=== PATIENT | female | born 1985 | race Two or more races ===

== ENCOUNTER 2024-11-16 14:40 | Emergency (ER) | payer MEDICAID, SELFPAY ==
[2024-11-16 14:41] VITALS: BMI 34.3
[2024-11-16 14:54] VITALS: BP 146/86; PULSE 85; RESP 18; TEMP 36.6; O2SAT 99
--- NOTE | 2024-11-16 14:58 | XR_ITS ---
Examination: Complete OB ultrasound, less than 14 weeks, transabdominal Date and time of exam: November 16, 2024 1533 hrs. Indications: Pelvic pain and vaginal bleeding today Technique: Obstetrical ultrasound images less than 14 weeks performed via transabdominal imaging Findings: Uterus 11.9 cm, pole 0.37 cm corresponds to 6 week 0 day gestational age No cardiac motion Subchorionic hemorrhage 25 x 27 mm Right ovary 2.87 arterial flow Left ovary 4.3 cm arterial flow 16mm cyst Impression: Intrauterine gestation corresponding to 6 week 0 day gestational age Cardiac motion Recommend short-term follow-up transvaginal pelvic sonography to exclude demise
[2024-11-16 15:33] LABS: Basophils % (Auto) 1 % (0-2.5); Eosinophils # (Auto) 0.2 Thou/mm3 (0.0-0.5); Eosinophils % (Auto) 2 % (0-10); Hematocrit 35.9 % (36.0-46.0); Hemoglobin 11.9 g/dL (12.0-16.0); Immature Granulocytes % (Auto) 0 % (0-0); Immature Granulocytes Auto 0.03 Thou/mm3 (0.00-0.00); Lymphocytes # (Auto) 1.8 Thou/mm3 (1.0-4.8); Lymphocytes % (Auto) 23 % (10-50); Mean Corpuscular HGB Conc 33.1 g/dl (31.0-37.0); Mean Corpuscular Hemoglobin 29.2 pg (25.0-35.0); Mean Corpuscular Volume 88 fL (80-100); Monocytes # (Auto) 0.5 Thou/mm3 (0.0-0.8); Monocytes % (Auto) 7 % (0-12); Neutrophils # (Auto) 5.2 Thou/mm3 (1.8-7.7); Neutrophils % (Auto) 67 % (37-80); Nucleated Red Blood Cell % 0 /100 WBC (0); Platelet Count 322 Thou/mm3 (140-440); RDW Standard Deviation 47.4 fL (36.4-46.3); Red Blood Count 4.08 Miln/mm3 (4.00-5.20); White Blood Count 7.7 Thou/mm3 (3.6-11.0)
[2024-11-16 16:22] LABS: Alanine Aminotransferase < 7 U/L (10-49); Albumin, Serum 3.9 gm/dL (3.5-5.0); Albumin/Globulin Ratio 1.3 (1.2-2.2); Alkaline Phosphatase 89 U/L (46-116); Anion Gap 5 (7-16); Aspartate Amino Transferase 10 U/L (0-34); BUN/Creatinine Ratio 13 Ratio (12-20); Beta HCG,Quantitative 47047 mIU/mL (<5.0); Bilirubin,Total 0.2 mg/dL (0.3-1.2); Blood Urea Nitrogen 8 mg/dL (9-23); Calcium 8.5 mg/dL (8.3-10.6); Calcium (Corrected) 8.6 mg/dL (8.5-10.1); Carbon Dioxide 22.8 mMol/L (20.0-31.0); Chloride 112 mMol/L (98-107); Creatinine (Component) 0.6 mg/dL (0.6-1.3); Estimated Creatinine Clearance 137.3 mL/min (>60); Globulin 2.9 gm/dL (2.3-3.5); Glucose 107 mg/dL (74-106); Osmolality,Calculated 277 (275-295); Potassium 4.1 mMol/L (3.4-5.1); Sodium 140 mMol/L (136-145); Total Protein 6.8 gm/dL (5.7-8.2); eGFR > 60 See Note
[2024-11-16 16:25] LABS: Collection Type, Urine Clean Catch
[2024-11-16 16:42] LABS: Bilirubin,Urine Negative (Negative); Blood,Urine Negative (Negative); Clarity,Urine Clear (Clear/Hazy); Color,Urine Lt-Yellow (Lt Yel-Yel); Glucose, Urine Negative (Negative); Ketones,Urine Negative (Negative); Leukocyte Esterase,Urine Positive (Negative); Nitrite,Urine Negative (Negative); Protein,Urine Negative (Neg - Trace); RBC,Urine 1 /hpf (0-3); Specific Gravity,Urine 1.016 (1.001-1.035); Squamous Epithelial Cell,Urine 1 /hpf (0-5); Urobilinogen,Urine Negative mg/dL (0.0-1.0); WBC,Urine 4 /hpf (0-5)
--- NOTE | 2024-11-16 17:00 | EDNOTE_ITS ---
ED Female Urogenital RME/HPI General Chief complaint: Urogenital-Female Stated complaint: LOWER ABD PAIN AND + PREG Time Seen by Provider: 11/16/24 14:58 Arrival date/time: 11/16/24 14:40 39-year-old female G7, presents to the emergency department complains of vaginal spotting and pelvic pain Limitations: no limitations Related Data Allergies Allergy/AdvReac Type Severity Reaction Status Date / Time Latex, Natural Rubber Allergy Severe Hives Verified 11/16/24 14:44 Review of Systems Review of Systems Systems Reviewed: All systems reviewed, normal except as documented Constitutional Constitutional: Reports system reviewed and no additional complaints, except as documented, Denies fever(s) and Denies headache(s) Eyes Eyes: Reports system reviewed and no additional complaints, except as documented and Denies blurry vision ENT Ears, Nose, Mouth, and Throat: Reports system reviewed and no additional complaints, except as documented, Denies headache(s), Denies nasal congestion and Denies nasal discharge Cardiovascular Cardiovascular: Reports system reviewed and no additional complaints, except as documented, Denies chest pain and Denies dyspnea Respiratory Respiratory: Reports system reviewed and no additional complaints, except as documented, Reports chest congestion, Reports cough and Denies dyspnea Gastrointestinal Gastrointestinal: Reports system reviewed and no additional complaints, except as documented and Denies abdominal pain Integumentary/Breasts Skin/Breast: Reports system reviewed and no additional complaints, except as documented and Denies rash Neurologic Neurologic: Reports system reviewed and no additional complaints, except as documented, Reports as per HPI and Denies headache(s) Past Medical History Social History SMOKING STATUS: Current every day smoker ED Exam General Limitations: Present no limitations General appearance: Present alert and in no apparent distress Head Head exam: Present atraumatic Eye Eye exam: Present normal appearance, PERRL and EOMI ENT ENT exam: Present normal exam, normal oropharynx and mucous membranes moist Neck Neck exam: Present normal inspection, full ROM and trachea midline Chest Chest inspection: Present normal inspection and symmetric chest wall rise Respiratory Respiratory exam: Present normal lung sounds bilaterally Cardiovascular Cardiovascular exam: Present regular rate, normal rhythm and normal heart sounds Abdominal Exam Abdominal exam: Present soft and normal bowel sounds Extremities Exam Extremities exam: Present normal inspection and full ROM Back Exam Back exam: Present normal inspection and full ROM Neurological Exam Neurological exam: Present alert, oriented X3 and CN II-XII intact Psychiatric Psychiatric exam: Present normal affect and normal mood Skin Skin exam: Present warm, dry, intact and normal color Course Quality Measures none Orders Category Date Time Status US OB <= 14 weeks fetus Stat Exams 11/16/24 14:58 Completed ABO/RH Type Stat Lab 11/16/24 15:06 Completed Beta HCG,Quantitative Stat Lab 11/16/24 15:06 Completed CBC Stat Lab 11/16/24 15:06 Completed Chlamydia/GC/TV - PCR Stat Lab 11/16/24 Ordered Comprehensive Metabolic Panel Stat Lab 11/16/24 15:06 Completed UA [Urinalysis] Stat Lab 11/16/24 16:00 Completed Urine Culture Stat Lab 11/16/24 16:00 Received Vital Signs Vital signs: Vital Signs Temperature 97.8 F 11/16/24 14:54 Pulse Rate 85 11/16/24 14:54 Respiratory Rate 18 11/16/24 14:54 Blood Pressure 146/86 H 11/16/24 14:54 Pulse Oximetry (%) 99 11/16/24 14:54 Oxygen Delivery Method Room Air 11/16/24 14:54 O2 saturation 99% r/a wnl Urogenital - Female MDM Narrative MDM Narrative:: 39-year-old female G7, presents to the emergency department complains of vaginal spotting and pelvic pain On exam patient well-appearing patient is not appear ill or toxic no acute distress Patient discharged home in no distress to follow-up with primary care doctor in the next 24 to 48 hours and for any worsening symptoms to return to the ER immediately Patient data External records reviewed:: [facility] previous records Clinical information provided by:: parent Social determinants that could affect healthcare access:: none Patient has the following chronic illnesses:: None How is presenting disease/condition affected by chronic disease/condition?: no chronic disease Evaluation data The following diagnostics were reviewed and interpreted by me:: lab results and radiology exam(s) Lab and/or radiology exams considered but not ordered:: By me Interpretation Summary: Reviewed by me Medications / Prescriptions Medications or Prescriptions considered but not ordered:: No meds Medication administrations:: No meds Consultations Consultation(s) initiated? (list below): No Diagnosis Urogenital Female Differential Diagnosis: urinary tract infection, bacterial vaginosis, ovarian cyst and cystitis Most likely diagnosis given after review of the tests above:: Threatened Admission Indicated Admission indicated?: not indicated Admission Request Was there a request for admission?: No Disposition Plan Disposition Plan: Discharge Discharge Attestation Discharge Attestation: The patient and all family members were given an opportunity to ask questions and understood the discharge instructions. Discharge instructions specifically effects, indications for sooner follow up or return to the emergency department, and the expected course of current diagnosis. Patient condition: Stable Discharge Plan Plan Patient Disposition: HOME (Self Care) Disposition Comment: Stable Prescriptions/Referrals Referrals: Avi Jaeger MD [Primary Care Provider] - In 1 week Problem List Clinical Impression: , threatened Patient/Caregiver Discharge Instructions Education Materials: ED Possible Miscarriage ... Additional Instructions: Please have repeat lab work and ultrasound 3 to 4 days for worsening symptoms return immediately Print Language: Sao Tomean Stand Alone Forms: Kathy Award Info., Patient Portal Info Letter PA/CREDIT CASHIER Supervising Physician NEY/MARIANELA Supervising Physician: Dr Negrete
== END 2024-11-16 17:05 | disposition home or self-care (01) ==
PROVIDERS: Nurse Practitioner Primary Care; Emergency Provider Emergency Medicine; PCP Family Medicine
DX: O20.0 Threatened abortion (principal); Z3A.01 Less than 8 weeks gestation of pregnancy
CPT/HCPCS: 36415; 76801; 80053; 81001; 84702; 85025; 86900; 86901; 87077; 87086; 87186; 87491; 87591; 87661; 99284

== ENCOUNTER 2024-11-24 19:30 | Emergency (ER) | payer SELFPAY ==
[2024-11-24 19:30] VITALS: BMI 41.1
[2024-11-24 19:35] VITALS: BP 145/85; PULSE 77; RESP 18; TEMP 37.2; O2SAT 99
--- NOTE | 2024-11-24 19:48 | XR_ITS ---
Examination: OB Transvaginal ultrasound of the pelvis, complete Technique: Transvaginal sonographic images pelvis performed using ludwig scale imaging Exam date and time: November 24, 2024 2123 hours INDICATIONS: Vaginal bleeding today FINDINGS: Uterus 7.0 cm pole is 0.67 cm corresponding to 6 weeks 4 days gestational age No cardiac motion Right ovary obscured by the body habitus as well as left ovary IMPRESSION: Intrauterine gestation corresponding to 6 weeks 4 days gestational age However, no cardiac motion Recommend short term follow up transvaginal pelvic sonography to exclude demise.
--- NOTE | 2024-11-24 19:49 | EDNOTE_ITS ---
ED OB Contraction Preg RMI/HPI General Chief complaint: Vaginal Bleeding Stated complaint: SPOTTING; 7 WEEKS PREG Time Seen by Provider: 11/24/24 19:34 Source: patient, RN notes reviewed and old records reviewed Arrival date/time: 11/24/24 19:30 Mode of arrival: ambulatory Limitations: no limitations RME / HPI RME / HPI Narrative: 39yof A1 approx 7 weeks gestation presents to the ED for vaginal spotting that initiated today. No fever, nausea/vomiting, pelvic/back pain or dysuria reported. No medications or treatments scow captain. Of note patient was evaluated in ED 11/16 for vaginal bleeding/pelvic pain. Ob ultrasound showed 6 week IUP without cardiac activity. H[place] 74767 at that time. Related Data Allergies Allergy/AdvReac Type Severity Reaction Status Date / Time Latex, Natural Rubber Allergy Severe Hives Verified 11/24/24 19:32 Review of Systems Review of Systems Systems Reviewed: All systems reviewed, normal except as documented Constitutional Constitutional: Denies chills and Denies fever(s) Gastrointestinal Gastrointestinal: Denies nausea and Denies vomiting Genitourinary Genitourinary: Reports abnormal vaginal bleeding, Denies dysuria and Denies pelvic pain Musculoskeletal Musculoskeletal: Denies back pain Past Medical History Past Medical History GASTROINTESTINAL: Positive Obesity Social History SMOKING STATUS: Never smoker SUBSTANCE USE: does not use ALCOHOL: Never ED Exam General Limitations: Present no limitations General appearance: Present alert, in no apparent distress and obese Head Head exam: Present atraumatic and normocephalic Eye Eye exam: Present normal appearance, PERRL and EOMI ENT ENT exam: Present normal exam and mucous membranes moist Neck Neck exam: Present normal inspection and full ROM Chest Chest inspection: Present normal inspection and symmetric chest wall rise Respiratory Respiratory exam: Present normal lung sounds bilaterally; Absent respiratory distress Cardiovascular Cardiovascular exam: Present regular rate and normal rhythm Abdominal Exam Abdominal exam: Present soft; Absent distention, tenderness, guarding or rebound Extremities Exam Extremities exam: Present normal inspection and full ROM Neurological Exam Neurological exam: Present alert and oriented X3 Psychiatric Psychiatric exam: Present normal affect and normal mood Skin Skin exam: Present warm, dry, intact and normal color Course Course Course Narrative: Consult to ob, Dr. Antoine. Recommends follow-up in clinic this week. No meds to be administered in ED. Quality Measures none Orders Category Date Time Status US OB transvaginal Stat Exams 11/24/24 19:48 Completed Beta HCG,Quantitative Stat Lab 11/24/24 20:02 Completed CBC Stat Lab 11/24/24 20:09 Completed Vital Signs Vital signs: Vital Signs Temperature 99.0 F 11/24/24 19:35 Pulse Rate 77 11/24/24 19:35 Respiratory Rate 18 11/24/24 19:35 Blood Pressure 145/85 H 11/24/24 19:35 Pulse Oximetry (%) 99 11/24/24 19:35 Oxygen Delivery Method Room Air 11/24/24 19:35 Vaginal Bleeding MDM Narrative MDM Narrative: 39yof A1 approx 7 weeks gestation presents to the ED for vaginal spotting that initiated today. No fever, nausea/vomiting, pelvic/back pain or dysuria reported. No medications or treatments scow captain. Of note patient was evaluated in ED 11/16 for vaginal bleeding/pelvic pain. Ob ultrasound showed 6 week IUP without cardiac activity. Hcg 95713 at that time. Patient updated on labs and imaging. Encourage close follow-up with OB in the f ollowing week. Motrin/Tylenol prn pain. Strict RTED precautions given. Patient data External records reviewed:: [facility] previous records (11/16/24 ED visit for threatened miscarriage) Clinical information provided by:: patient Social determinants that could affect healthcare access:: other (specify) (poor access to healthcare) Patient has the following chronic illnesses:: obesity How is presenting disease/condition affected by chronic disease/condition?: uneffected by Evaluation data The following diagnostics were reviewed and interpreted by me:: lab results and radiology exam(s) Lab and/or radiology exams considered but not ordered:: UA Interpretation Summary: Ob ultrasound: IUP with NO cardiac activity per [place] read hcg 02903 hgb 12.2 Medications / Prescriptions Medications or Prescriptions considered but not ordered:: no antibiotics recommended at this time Medication administrations:: none Consultations Consultation(s) initiated? (list below): Yes Consultation #1 (Physician, Specialty, Details): Ob, Dr. Antoine. See ED course. Diagnosis Vaginal Bleeding Differential Diagnosis: missed , threatened , incomplete and ectopic without intrauterine Most likely diagnosis given after review of the tests above:: Incomplete Admission Indicated Admission indicated?: not indicated Admission Request Was there a request for admission?: No Disposition Plan Disposition Plan: Discharge Discharge Attestation Discharge Attestation: The patient and all family members were given an opportunity to ask questions and understood the discharge instructions. Discharge instructions specifically effects, indications for sooner follow up or return to the emergency department, and the expected course of current diagnosis. Patient condition: Stable Discharge Plan Plan Patient Disposition: HOME (Self Care) Patient condition on transfer: Stable Prescriptions/Referrals Referrals: No Primary/Family,Physician [Primary Care Provider] - In 1 week Problem List Clinical Impression: Incomplete , Vaginal bleeding Patient/Caregiver Discharge Instructions Education Materials: ED Miscarriage, Incomplete Additional Instructions: Please follow up at the [facility] within the following week. Dr. Antoine will be in the clinic Monday?Monday. Print Language: Wolof Stand Alone Forms: Kathy Award Info., Patient Portal Info Letter NEY/MARIANELA Supervising Physician NEY/MARIANELA Supervising Physician: Ebenezer
[2024-11-24 20:19] LABS: Basophils # (Auto) 0.1 Thou/mm3 (0.0-0.2); Basophils % (Auto) 1 % (0-2.5); Eosinophils # (Auto) 0.1 Thou/mm3 (0.0-0.5); Eosinophils % (Auto) 2 % (0-10); Hematocrit 37.2 % (36.0-46.0); Hemoglobin 12.2 g/dL (12.0-16.0); Immature Granulocytes % (Auto) 0 % (0-0); Immature Granulocytes Auto 0.03 Thou/mm3 (0.00-0.00); Lymphocytes # (Auto) 2.9 Thou/mm3 (1.0-4.8); Lymphocytes % (Auto) 32 % (10-50); Mean Corpuscular HGB Conc 32.8 g/dl (31.0-37.0); Mean Corpuscular Hemoglobin 29.2 pg (25.0-35.0); Mean Corpuscular Volume 89 fL (80-100); Monocytes # (Auto) 0.6 Thou/mm3 (0.0-0.8); Monocytes % (Auto) 6 % (0-12); Neutrophils # (Auto) 5.3 Thou/mm3 (1.8-7.7); Neutrophils % (Auto) 59 % (37-80); Nucleated Red Blood Cell % 0 /100 WBC (0); Platelet Count 355 Thou/mm3 (140-440); RDW Standard Deviation 48.9 fL (36.4-46.3); Red Blood Count 4.18 Miln/mm3 (4.00-5.20); White Blood Count 8.9 Thou/mm3 (3.6-11.0)
[2024-11-24 21:25] LABS: Beta HCG,Quantitative 36268 mIU/mL (<5.0)
[2024-11-24 22:22] VITALS: RESP 18
== END 2024-11-24 22:23 | disposition home or self-care (01) ==
PROVIDERS: Physician Assistant; Emergency Provider Emergency Medicine
DX: O03.4 Incomplete spontaneous abortion without complication (principal)
CPT/HCPCS: 36415; 76817; 84702; 85025; 99284

== ENCOUNTER 2024-11-27 17:09 | Emergency (ER) | payer SELFPAY ==
[2024-11-27 17:17] VITALS: BP 133/84; PULSE 76; RESP 18; TEMP 36.8; O2SAT 97; BMI 41.1
--- NOTE | 2024-11-27 17:21 | XR_ITS ---
Examination: OB Transvaginal ultrasound of the pelvis, complete Technique: Transvaginal sonographic images pelvis performed using ludwig scale imaging Exam date and time: November 27, 2024 1940 hours INDICATIONS: Vaginal bleeding beginning 2 weeks ago, pelvic sonogram November 24, 2024 intrauterine gestation with no cardiac motion FINDINGS: Uterus 11.3 cm, pole 0.4 cm corresponds to 6 weeks 1 day gestational age No cardiac motion Multiple subchorionic hemorrhages, the largest 13 x 11 x 18 mm Ovaries obscured by bowel gas IMPRESSION: Intrauterine gestation corresponding to 6 weeks 1 day gestational age However, again no cardiac motion Continued follow up transvaginal pelvic sonography recommended to confirm embryonic demise.
--- NOTE | 2024-11-27 17:24 | PD.EDVAGBL ---
ED OB Contraction Preg RMI/HPI General Chief complaint: Vaginal Bleeding Stated complaint: VAG BLEEDING Time Seen by Provider: 11/27/24 17:21 Arrival date/time: 11/27/24 17:09 RME / HPI RME / HPI Narrative: 39-year-old female patient 7 para 5 1, about 6 weeks , came in for evaluation regarding vaginal bleeding. Patient has been having vaginal bleeding for almost 2 weeks now, this is her third visit, patient hCG was noted to be trending down for the last 2 visit. Last hCG was noted to be 36,000 last. The rest of the labs unremarkable there is no leukocytosis. No anemia noted. Patient is denying any pelvic pain denies any fever denies any other complaints. No checkup done yet. Related Data Allergies Allergy/AdvReac Type Severity Reaction Status Date / Time Latex, Natural Rubber Allergy Severe Hives Verified 11/24/24 19:32 Review of Systems Review of Systems Narrative Review of Systems: Review of system reviewed and within normal limits except mentioned in HPI ED Exam Narrative Physical exam: VITAL SIGNS: Reviewed. GENERAL APPEARANCE: Alert and interactive, follows commands, no acute distress, HEAD AND FACE: Non-traumatic. ENT: PERRL, pink conjunctivitis, eyelid no trauma, Mucous membrane moist. NECK: Supple, nontender, no nuchal rigidity. CHEST: No tenderness, no crepitus, no paradoxical movement, no retractions. LUNGS: Clear, well ventilated, symmetric, no rales, no wheezing, no ronchi, no stridor, good breath sounds bilaterally. HEART: Regular rate, regular rhythm, no murmur, no gallops. ABDOMEN: Soft, positive bowel sounds, nondistended, no guarding, nontender, no rebound, no masses, RECTAL: Deferred. GENITAL: Deferred. NEUROLOGICAL: Gross motor function intact sensory function intact, Appropriate for age. MUSCULOSKELETAL: low back nontender, full range of motion. EXTREMITIES: Nontender, full range of motion. SKIN: Color pink, dry, no rash, no lacerations, no abrasions, no contusions. LYMPHATICS: Deferred. Course Quality Measures none Orders Category Date Time Status Consult to Gynecology Stat Cons 11/27/24 19:56 Ordered US OB transvaginal Stat Exams 11/27/24 17:21 Completed Beta HCG,Quantitative Stat Lab 11/27/24 18:22 Completed CBC Stat Lab 11/27/24 18:22 Completed CMP [Comprehensive Metabolic Panel] Stat Lab 11/27/24 18:22 Completed Vital Signs Vital signs: Vital Signs Temperature 98.3 F 11/27/24 17:17 Pulse Rate 76 11/27/24 17:17 Respiratory Rate 18 11/27/24 17:17 Blood Pressure 133/84 H 11/27/24 17:17 Pulse Oximetry (%) 97 11/27/24 17:17 Oxygen Delivery Method Room Air 11/27/24 17:17 Vaginal Bleeding MDM Narrative MDM Narrative: 39-year-old female patient 7 para 5 1, about 6 weeks , came in for evaluation regarding vaginal bleeding. Patient has been having vaginal bleeding for almost 2 weeks now, this is her third visit, patient hCG was noted to be trending down for the last 2 visit. Last hCG was noted to be 36,000 last. Patient is denying any pelvic pain denies any fever denies any other complaints. No checkup done yet. Patient's hCG today was noted to be 29,209 T3, 3 days ago it was 36,000+. Ultrasound of the transvaginal showed Intrauterine gestation corresponding to 6 weeks 1 day gestational age However, again no cardiac motion Continued follow up transvaginal pelvic sonography recommended to confirm embryonic demise. I consulted , TRANSLATIONAL SPECIALIST on-call, who recommends /asking the patient to do n.p.o. post midnight, and return to emergency room in in the morning 7:00 for D&C. Plan of care discussed with the patient and the patient told me that they are planning to go to a different clinic tomorrow morning. Patient data External records reviewed:: [facility] previous records and None Clinical information provided by:: patient and family Social determinants that could affect healthcare access:: none Patient has the following chronic illnesses:: None How is presenting disease/condition affected by chronic disease/condition?: no chronic disease Evaluation data The following diagnostics were reviewed and interpreted by me:: lab results and radiology exam(s) Lab and/or radiology exams considered but not ordered:: None Interpretation Summary: See results [facility] Medications / Prescriptions Medications or Prescriptions considered but not ordered:: None Medication administrations:: None Consultations Consultation(s) initiated? (list below): Yes Consultation #1 (Physician, Specialty, Details): Dr Kong, TRANSLATIONAL SPECIALIST on-call, thank you Dr Kong Diagnosis Vaginal Bleeding Differential Diagnosis: missed and incomplete Most likely diagnosis given after review of the tests above:: demise, vaginal spotting Admission Indicated Admission indicated?: not indicated Admission Request Was there a request for admission?: No Disposition Plan Disposition Plan: Discharge Discharge Attestation Discharge Attestation: The patient and all family members were given an opportunity to ask questions and understood the discharge instructions. Discharge instructions specifically effects, indications for sooner follow up or return to the emergency department, and the expected course of current diagnosis. Patient condition: Stable Discharge Plan Plan Patient Disposition: HOME (Self Care) Disposition Comment: Stable Prescriptions/Referrals Referrals: Avi Jaeger MD [Primary Care Provider] - In 1 week Problem List Clinical Impression: Vaginal spotting, demise Patient/Caregiver Discharge Instructions Education Materials: Understanding Uterine Bleeding Additional Instructions: Thank you for the opportunity for serving you today. You are stable for discharged . You are advised to: Please return to emergency room at 7:00 in the morning for D&C per instruction from TRANSLATIONAL SPECIALIST on-call Dr Kong N.p.o. postmidnight Return to ED for worsening of symptoms Print Language: Azerbaijani Stand Alone Forms: Kathy Award Info., Patient Portal Info Letter NEY/MARIANELA Supervising Physician NEY/MARIANELA Supervising Physician: MD Ebenezer
[2024-11-27 18:35] LABS: Basophils % (Auto) 0 % (0-2.5); Eosinophils # (Auto) 0.1 Thou/mm3 (0.0-0.5); Eosinophils % (Auto) 2 % (0-10); Hematocrit 36.6 % (36.0-46.0); Hemoglobin 12.3 g/dL (12.0-16.0); Immature Granulocytes % (Auto) 0 % (0-0); Immature Granulocytes Auto 0.02 Thou/mm3 (0.00-0.00); Lymphocytes # (Auto) 2.3 Thou/mm3 (1.0-4.8); Lymphocytes % (Auto) 30 % (10-50); Mean Corpuscular HGB Conc 33.6 g/dl (31.0-37.0); Mean Corpuscular Hemoglobin 29.5 pg (25.0-35.0); Mean Corpuscular Volume 88 fL (80-100); Monocytes # (Auto) 0.6 Thou/mm3 (0.0-0.8); Monocytes % (Auto) 7 % (0-12); Neutrophils # (Auto) 4.6 Thou/mm3 (1.8-7.7); Neutrophils % (Auto) 60 % (37-80); Nucleated Red Blood Cell % 0 /100 WBC (0); Platelet Count 355 Thou/mm3 (140-440); RDW Standard Deviation 47.5 fL (36.4-46.3); Red Blood Count 4.17 Miln/mm3 (4.00-5.20); White Blood Count 7.6 Thou/mm3 (3.6-11.0)
[2024-11-27 18:57] LABS: Alanine Aminotransferase 10 U/L (10-49); Albumin, Serum 4.5 gm/dL (3.5-5.0); Albumin/Globulin Ratio 1.5 (1.2-2.2); Alkaline Phosphatase 91 U/L (46-116); Anion Gap 6 (7-16); Aspartate Amino Transferase 16 U/L (0-34); BUN/Creatinine Ratio 15 Ratio (12-20); Bilirubin,Total 0.3 mg/dL (0.3-1.2); Blood Urea Nitrogen 12 mg/dL (9-23); Calcium 9.4 mg/dL (8.3-10.6); Calcium (Corrected) 9.4 mg/dL (8.5-10.1); Carbon Dioxide 27.9 mMol/L (20.0-31.0); Chloride 102 mMol/L (98-107); Creatinine (Component) 0.8 mg/dL (0.6-1.3); Estimated Creatinine Clearance 113.8 mL/min (>60); Globulin 3.1 gm/dL (2.3-3.5); Glucose 90 mg/dL (74-106); Osmolality,Calculated 271 (275-295); Potassium 4.2 mMol/L (3.4-5.1); Sodium 136 mMol/L (136-145); Total Protein 7.6 gm/dL (5.7-8.2); eGFR > 60 See Note
[2024-11-27 19:38] LABS: Beta HCG,Quantitative 29293 mIU/mL (<5.0)
[2024-11-27 19:49] VITALS: BP 152/93; PULSE 67; RESP 18; TEMP 36.7; O2SAT 100
--- NOTE | 2024-11-27 20:44 | PD.GYNCONS ---
WOOD FLOORING SPECIALIST HPI Data of Consult Consult date: 11/27/24 Requesting Physician: Jonas BREWSTER Primary Care Provider: Avi Jaeger MD Consult Narrative Reason for consult: vaginal bleeding History of present illness: Patient is a 39-year-old female with a missed AB. It is her third trip to the ER. She has a 6-week IUP with no cardiac activity. She was also here 11/16 and 11/24. She has been trying to get care at [facility] and they are not accepting new OB patients. There has been no growth of the and there is no cardiac activity. The patient reports reports cramping and spotting but no heavy bleeding. She would like a D&C. The patient ate approximately 5 hours prior to admission. I ran the case by anesthesia and they would prefer to do it tomorrow. As patient is medically stable they recommended sending her back through the ER in the morning as an add-on case and the patient is amendable to this. If she starts bleeding heavily overnight she can come back to the ER and I will perform the D&C tonight. Review of Systems Review of Systems Narrative Review of Systems: Mild cramping and some light bleeding. Meds Home Medications and Allergies Allergies Allergy/AdvReac Type Severity Reaction Status Date / Time Latex, Natural Rubber Allergy Severe Hives Verified 11/24/24 19:32 Exam - WOOD FLOORING SPECIALIST Vital Signs Temp Pulse Resp BP Pulse Ox O2 Del Method 98.1 F 67 18 152/93 H 100 Room Air 11/27/24 19:49 11/27/24 19:49 11/27/24 19:49 11/27/24 19:49 11/27/24 19:49 11/27/24 19:49 Narrative Exam Ultrasound report and labs reviewed. Vitals reviewed. Patient not seen by myself. WOOD FLOORING SPECIALIST - Results Labs 11/27/24 18:22 11/27/24 18:22 Labs: Short CBC 11/27/24 Range/Units 18:22 WBC 7.6 (3.6-11.0) Thou/mm3 Hgb 12.3 (12.0-16.0) g/dL Hct 36.6 (36.0-46.0) % Plt Count 355 (140-440) Thou/mm3 BMP 11/27/24 18:22 Sodium 136 Potassium 4.2 Chloride 102 Carbon Dioxide 27.9 BUN 12 Creatinine 0.8 Glucose 90 Calcium 9.4 Liver Function 11/27/24 Range/Units 18:22 Total Bilirubin 0.3 (0.3-1.2) mg/dL AST 16 (0-34) U/L ALT 10 (10-49) U/L Alkaline Phosphatase 91 (46-116) U/L Albumin 4.5 (3.5-5.0) gm/dL Assessment and Plan Assessment and plan (1) Vaginal bleeding: Status: Acute Assessment and plan: 6-week missed AB with some cramping and bleeding. Patient desires suction dilation and curettage. This cannot be performed tonight until 8 hours n.p.o. Which would involve calling in a team at midnight. Anesthesia suggested the patient come back in the morning and be added on to the OR schedule. The maid housekeeper thought going through the ER first thing in the morning would expedite this process. The patient is to go home tonight and be n.p.o. for 8 hours. She is to return to the ER tomorrow at 7 in the morning. She will need an IV and a surgical consent. The physician performing her surgery will consent her for a suction D&C. I will sign out the case to the CONTRACT ASSISTANT laborist on-call tomorrow. Blood type is B positive. Current hemoglobin 12.3 (2) Incomplete : Status: Acute Assessment and plan: For suction dilation and curettage in the morning.
[2024-11-27 21:05] VITALS: BP 135/76; PULSE 86; RESP 16; TEMP 37; O2SAT 98
== END 2024-11-27 21:07 | disposition home or self-care (01) ==
PROVIDERS: Nurse Practitioner Primary Care; Emergency Provider Emergency Medicine; PCP Family Medicine
DX: O02.1 Missed abortion (principal)
CPT/HCPCS: 36415; 76817; 80053; 84702; 85025; 99284

== ENCOUNTER 2025-06-21 11:47 | Emergency (ER) | payer MEDICAID, SELFPAY ==
[2025-06-21 12:01] VITALS: BP 158/101; PULSE 73; RESP 19; TEMP 36.4; O2SAT 99; BMI 29.7
--- NOTE | 2025-06-21 12:09 | EDNOTE_ITS ---
Nausea/Vomit./Diarrhea-RME/HPI General Chief complaint: Nausea/Vomiting/Diarrhea Stated complaint: Vomiting and diarrhea today Time Seen by Provider: 06/21/25 12:09 Arrival date/time: 06/21/25 11:47 39-year-old female who is currently homeless with history of methamphetamine abuse presents with concerns for nausea vomiting and diarrhea which began today patient reports no chest pain or shortness of breath Limitations: no limitations Related Data Previous Rx's ?Medication ?Instructions ?Recorded acetaminophen 325 mg capsule 650 mg (2 x 325 mg) PO Q8 HR PRN 06/21/25 pain #30 caps ondansetron 4 mg disintegrating 4 mg PO Q8H PRN nausea and 06/21/25 tablet vomiting #10 tabs Allergies Allergy/AdvReac Type Severity Reaction Status Date / Time Latex, Natural Rubber Allergy Severe Hives Verified 06/21/25 11:51 Review of Systems Review of Systems Systems Reviewed: All systems reviewed, normal except as documented Constitutional Constitutional: Reports system reviewed and no additional complaints, except as documented, Denies fever(s) and Denies headache(s) Eyes Eyes: Reports system reviewed and no additional complaints, except as documented and Denies blurry vision ENT Ears, Nose, Mouth, and Throat: Reports system reviewed and no additional complaints, except as documented, Denies headache(s), Denies nasal congestion and Denies nasal discharge Cardiovascular Cardiovascular: Reports system reviewed and no additional complaints, except as documented, Denies chest pain and Denies dyspnea Respiratory Respiratory: Reports system reviewed and no additional complaints, except as documented, Denies chest congestion, Denies cough and Denies dyspnea Gastrointestinal Gastrointestinal: Reports system reviewed and no additional complaints, except as documented, Denies abdominal pain, Reports diarrhea, Reports nausea and Reports vomiting Integumentary/Breasts Skin/Breast: Reports system reviewed and no additional complaints, except as documented and Denies rash Neurologic Neurologic: Reports system reviewed and no additional complaints, except as documented, Reports as per HPI and Denies headache(s) Past Medical History Past Medical History CARDIAC: Negative Congestive Heart Failure RESPIRATORY: Negative Chronic Obstructive Pulmonary Disease (COPD) GASTROINTESTINAL: Positive Obesity GENITOURINARY: Negative Renal Disease ENDOCRINE: Negative Diabetes Mellitus Type 1 or Diabetes Mellitus Type 2 Social History SMOKING STATUS: Never smoker SUBSTANCE USE: does not use ED Exam General Limitations: Present no limitations General appearance: Present alert and in no apparent distress Head Head exam: Present atraumatic Eye Eye exam: Present normal appearance, PERRL and EOMI ENT ENT exam: Present normal exam, normal oropharynx and mucous membranes moist Neck Neck exam: Present normal inspection, full ROM and trachea midline Chest Chest inspection: Present normal inspection and symmetric chest wall rise Respiratory Respiratory exam: Present normal lung sounds bilaterally Cardiovascular Cardiovascular exam: Present regular rate, normal rhythm and normal heart sounds Abdominal Exam Abdominal exam: Present soft and normal bowel sounds; Absent distention, tenderness, guarding, rebound, rigidity, Nicole's sign, Rovsing's sign or tenderness at McBurney's Point Abdominal tenderness: Absent RUQ or RLQ Extremities Exam Extremities exam: Present normal inspection and full ROM Back Exam Back exam: Present normal inspection and full ROM Neurological Exam Neurological exam: Present alert, oriented X3 and CN II-XII intact Psychiatric Psychiatric exam: Present normal affect and normal mood Skin Skin exam: Present warm, dry, intact and normal color Course Quality Measures none Orders Category Date Time Status US OB transvaginal Stat Exams 06/21/25 14:09 Completed Beta HCG,Quantitative Stat Lab 06/21/25 12:28 Completed CBC Stat Lab 06/21/25 12:21 Completed Comprehensive Metabolic Panel Stat Lab 06/21/25 12:21 Completed Drug Screen,Urine Stat Lab 06/21/25 12:41 Completed HCG,Qualitative Serum Stat Lab 06/21/25 12:21 Completed Lipase Stat Lab 06/21/25 12:21 Completed Troponin I Stat Lab 06/21/25 12:21 Completed UA, C/S IF [Urinalysis, C/S if Indicated] Stat Lab 06/21/25 12:41 Completed Vital Signs Vital signs: Vital Signs Temperature 97.5 F 06/21/25 12:01 Pulse Rate 73 06/21/25 12:01 Respiratory Rate 19 06/21/25 12:01 Blood Pressure 158/101 H 06/21/25 12:01 Pulse Oximetry (%) 99 06/21/25 12:01 Oxygen Delivery Method Room Air 06/21/25 12:01 O2 saturation 9 9% room air within normal limits Nausea/Vomiting/Diarrhea MDM Narrative MDM Narrative:: 39-year-old female who is currently homeless with history of methamphetamine abuse presents with concerns for nausea vomiting and diarrhea which began today patient reports no chest pain or shortness of breath On exam patient well-appearing does not appear look toxic no acute distress Lab work obtained hCG urine is positive hCG quantitative blood level checked patient is her lab work Ultrasound obtained does not show any evidence of I suspect this is secondary to the patient is early she does not yet seen an ultrasound Explained to the patient she must follow-up with [facility] as soon as possible for emergent concerns to return immediately Patient reports no bleeding and this is a incidental finding Symptoms highly consistent with viral gastroenteritis Patient discharged home in no distress to follow-up with primary care doctor in the next 24 to 48 hours and for any worsening symptoms to return to the ER immediately Patient data External records reviewed:: [facility] previous records Clinical information provided by:: patient Social determinants that could affect healthcare access:: substance use Patient has the following chronic illnesses:: Substance abuse How is presenting disease/condition affected by chronic disease/condition?: exacerbated by Evaluation data The following diagnostics were reviewed and interpreted by me:: lab results and radiology exam(s) Lab and/or radiology exams considered but not ordered:: Labs and radiology obtained Interpretation Summary: Reviewed by me Medications / Prescriptions Medications / Prescriptions considered but not ordered:: Given Medication administrations:: Given Consultations Consultation(s) initiated? (list below): No Diagnosis Nausea Differential Diagnosis: traveler's diarrhea, food poisoning and gastroenteritis Most likely diagnosis given after review of the tests above:: Gastroenteritis, incidental finding of Admission Indicated Admission indicated?: not indicated Admission Request Was there a request for admission?: No Disposition Plan Disposition Plan: Discharge Discharge Attestation Discharge Attestation: The patient and all family members were given an opportunity to ask questions and understood the discharge instructions. Discharge instructions specifically effects, indications for sooner follow up or return to the emergency department, and the expected course of current diagnosis. Patient condition: Stable Discharge Plan Plan Patient Disposition: HOME (Self Care) Discharge Disposition comment: Stable Prescriptions/Referrals Prescriptions/Med Rec: New ondansetron 4 mg tablet,disintegrating 4 mg PO Q8H PRN (Reason: nausea and vomiting) Qty: 10 0RF acetaminophen 325 mg capsule 650 mg PO Q8HR PRN (Reason: pain) Qty: 30 0RF Referrals: No Primary/Family,Physician [Primary Care Provider] - In 1 week Problem List Clinical Impression: Gastroenteritis, state, incidental, Methamphetamine abuse Patient/Caregiver Discharge Instructions Education Materials: ED Drug Abuse Additional Instructions: Please follow-up with [facility] as soon as possible for worsening symptoms or concerns return immediately Today your hCG quantitative level is 640 Ultrasound does not show evidence of at this time which means most likely you have an early You may need to have repeat imaging and lab work with [facility] Please refrain from drug abuse that can kill you and can injure your unborn fetus Print Language: Swedish Stand Alone Forms: Kathy Award Info., Patient Portal Info Letter PA/BANKRUPTCY LEGAL ASSISTANT Supervising Physician PA/BANKRUPTCY LEGAL ASSISTANT Supervising Physician: Dr. garcia
[2025-06-21 12:48] LABS: Collection Type, Urine Clean Catch
[2025-06-21 12:55] LABS: Basophils # (Auto) 0.0 Thou/mm3 (0.0-0.2); Basophils % (Auto) 0 % (0-2.5); Eosinophils # (Auto) 0.1 Thou/mm3 (0.0-0.5); Eosinophils % (Auto) 1 % (0-10); Hematocrit 36.5 % (36.0-46.0); Hemoglobin 11.3 g/dL (12.0-16.0); Immature Granulocytes Auto 0.03 Thou/mm3 (0.00-0.00); Lymphocytes # (Auto) 0.6 Thou/mm3 (1.0-4.8); Lymphocytes % (Auto) 5 % (10-50); Mean Corpuscular HGB Conc 31.0 g/dl (31.0-37.0); Mean Corpuscular Hemoglobin 24.5 pg (25.0-35.0); Mean Corpuscular Volume 79 fL (80-100); Monocytes # (Auto) 0.5 Thou/mm3 (0.0-0.8); Monocytes % (Auto) 5 % (0-12); Neutrophils # (Auto) 9.8 Thou/mm3 (1.8-7.7); Neutrophils % (Auto) 89 % (37-80); Nucleated Red Blood Cell # 0.00 Thou/mm3 (0.00-0.00); Nucleated Red Blood Cell % 0 /100 WBC (0); Platelet Count 297 Thou/mm3 (140-440); RDW Standard Deviation 52.0 fL (36.4-46.3); Red Blood Count 4.62 Miln/mm3 (4.00-5.20); White Blood Count 10.9 Thou/mm3 (3.6-11.0)
[2025-06-21 13:13] LABS: Alanine Aminotransferase 12 U/L (10-49); Albumin, Serum 4.7 gm/dL (3.5-5.0); Albumin/Globulin Ratio 1.4 (1.2-2.2); Alkaline Phosphatase 97 U/L (46-116); Anion Gap 8 (7-16); Aspartate Amino Transferase 19 U/L (0-34); BUN/Creatinine Ratio 14 Ratio (12-20); Bilirubin,Total 0.4 mg/dL (0.3-1.2); Blood Urea Nitrogen 10 mg/dL (9-23); Calcium 9.0 mg/dL (8.3-10.6); Calcium (Corrected) 9.0 mg/dL (8.5-10.1); Carbon Dioxide 22.9 mMol/L (20.0-31.0); Chloride 106 mMol/L (98-107); Creatinine (Component) 0.7 mg/dL (0.6-1.3); Estimated Creatinine Clearance 117.5 mL/min (>60); Globulin 3.3 gm/dL (2.3-3.5); Glucose 112 mg/dL (74-106); Lipase 44 U/L (12-53); Osmolality,Calculated 273 (275-295); Potassium 4.4 mMol/L (3.4-5.1); Sodium 137 mMol/L (136-145); Total Protein 8.0 gm/dL (5.7-8.2); Troponin I < 0.002 ng/mL (0.0-0.045); eGFR > 60 See Note
[2025-06-21 13:16] LABS: Bilirubin,Urine Negative (Negative); Blood,Urine Negative (Negative); Clarity,Urine Clear (Clear/Hazy); Color,Urine Yellow (Lt Yel-Yel); Culture Indicated,Urine Not Indicated; Glucose, Urine Negative (Negative); Ketones,Urine Negative (Negative); Leukocyte Esterase,Urine Negative (Negative); Nitrite,Urine Negative (Negative); PH,Urine 5.5 (5.0-7.0); Protein,Urine Negative (Neg - Trace); RBC,Urine 4 /hpf (0-3); Specific Gravity,Urine 1.031 (1.001-1.035); Squamous Epithelial Cell,Urine 2 /hpf (0-5); Urobilinogen,Urine Negative mg/dL (0.0-1.0); WBC,Urine 1 /hpf (0-5)
[2025-06-21 13:45] LABS: HCG,Qualitative Serum Positive
[2025-06-21 13:48] LABS: Amphetamine/Methamp Scrn,U Positive (Negative); Barbiturate Screen,Urine Negative (Negative); Benzodiazepines Screen,Urine Negative (Negative); Benzoylecgonine Screen, Ur Negative (Negative); Fentanyl Screen,Urine Negative (Negative); Opiate Screen,Urine Negative (Negative); THC Screen,Urine Positive (Negative)
--- NOTE | 2025-06-21 14:09 | XR_ITS ---
Examination: OB Transvaginal ultrasound of the pelvis, complete Technique: Transvaginal sonographic images pelvis performed using ludwig scale imaging Exam date and time: June 21, 2025, 1505 hours INDICATIONS: Positive test with vomiting today FINDINGS: Uterus 9.8 cm, no intrauterine gestation Urinary fibroid degeneration 2.7 cm Endometrial stripe 1.6 cm Right ovary not visualized Left ovary 3.9 cm arterial flow 14 mm follicular cyst IMPRESSION: Negative for intrauterine gestation Uterine area fibroid degeneration 27 x 15 x 25 mm.
[2025-06-21 15:27] LABS: Beta HCG,Quantitative 640 mIU/mL (<5.0)
[2025-06-21 16:57] VITALS: BP 168/78; PULSE 79; RESP 18; TEMP 36.5; O2SAT 98
== END 2025-06-21 16:59 | disposition home or self-care (01) ==
PROVIDERS: Nurse Practitioner Primary Care; Emergency Provider Emergency Medicine
DX: O21.8 Other vomiting complicating pregnancy (principal); K52.9 Noninfective gastroenteritis and colitis, unspecified; Z59.00 Homelessness unspecified; F15.10 Other stimulant abuse, uncomplicated
CPT/HCPCS: 36415; 76817; 80053; 80307; 81001; 83690; 84484; 84702; 84703; 85025; 99283

== ENCOUNTER 2025-06-27 14:47 | Emergency (ER) | payer MEDICAID, SELFPAY ==
[2025-06-27 14:50] VITALS: BP 156/88; PULSE 87; RESP 18; TEMP 36.9; O2SAT 99
--- NOTE | 2025-06-27 15:01 | XR_ITS ---
Examination: Complete OB ultrasound, less than 14 weeks, transabdominal Date and time of exam: June 27, 2025, 1612 hours INDICATIONS: Back pain pelvic pain 1 week Technique: Obstetrical ultrasound images less than 14 weeks performed via transabdominal imaging Findings: Uterus 10.0 cm endometrial stripe 2.1 cm No uterine mass or intrauterine gestation Right ovary obscured by bowel gas Left ovary 4.2 cm arterial flow 2.6 x 1.4 x 2.1 cm cyst IMPRESSION: Left ovarian simple cyst 2.6 x 1.4 x 2.1 cm .
--- NOTE | 2025-06-27 15:09 | PD.EDPREG ---
ED OB Contraction Preg RMI/HPI General Stated complaint: CORRECTION CLEARANCE Time Seen by Provider: 06/27/25 14:51 Source: patient Arrival date/time: 06/27/25 14:47 39-year-old female with no known medical history presents to the emergency room with a chief complaint of needing retirement clearance due to being and not knowing how far along she is. Mode of arrival: ambulatory Limitations: no limitations Related Data Previous Rx's ?Medication ?Instructions ?Recorded acetaminophen 325 mg capsule 650 mg (2 x 325 mg) PO Q8HR PRN 06/21/25 pain #30 caps ondansetron 4 mg disintegrating 4 mg PO Q8H PRN nausea and 06/21/25 tablet vomiting #10 tabs Allergies Allergy/AdvReac Type Severity Reaction Status Date / Time Latex, Natural Rubber Allergy Severe Hives Verified 06/21/25 11:51 Review of Systems Review of Systems Systems Reviewed: All systems reviewed, normal except as documented Constitutional Constitutional: Reports system reviewed and no additional complaints, except as documented, Denies fatigue, Denies fever(s), Denies headache(s) and Denies weakness Eyes Eyes: Reports system reviewed and no additional complaints, except as documented, Denies blurry vision and Denies change in vision ENT Ears, Nose, Mouth, and Throat: Reports system reviewed and no additional complaints, except as documented, Denies otalgia, Denies headache(s), Denies nasal congestion, Denies throat swelling and Denies vertigo Cardiovascular Cardiovascular: Reports system reviewed and no additional complaints, except as documented, Denies chest pain, Denies dyspnea and Denies dyspnea on exertion Respiratory Respiratory: Reports system reviewed and no additional complaints, except as documented, Denies chest congestion, Denies cough, Denies dyspnea, Denies dyspnea on exertion and Denies wheezing Gastrointestinal Gastrointestinal: Reports system reviewed and no additional complaints, except as documented, Denies abdominal pain, Denies cramping, Denies nausea and Denies vomiting Genitourinary Genitourinary: Reports system reviewed and no additional complaints, except as documented Musculoskeletal Musculoskeletal: Reports system reviewed and no additional complaints, except as documented and Denies back pain Integumentary/Breasts Skin/Breast: Reports system reviewed and no additional complaints, except as documented and Denies wounds Neurologic Neurologic: Reports system reviewed and no additional complaints, except as documented, Denies confusion, Denies headache(s), Denies lack of coordination, Denies vertigo and Denies weakness Psychiatric Psychiatric: Reports system reviewed and no additional complaints, except as documented, Denies anxiety, Denies confusion, Denies depression, Denies paranoia, Denies suicidal ideation and Denies tactile hallucinations Endocrine Endocrine: Reports system reviewed and no additional complaints, except as documented and Denies fatigue Hematologic/Lymphatic Hematologic/Lymphatic: Reports system reviewed and no additional complaints, except as documented and Denies lymphadenopathy Allergic/Immunologic Allergic/Immunologic: Reports system reviewed and no additional complaints, except as documented, Denies throat swelling, Denies urticaria and Denies wheezing Past Medical History Past Medical History CARDIAC: Negative Congestive Heart Failure RESPIRATORY: Negative Chronic Obstructive Pulmonary Disease (COPD) GASTROINTESTINAL: Positive Obesity GENITOURINARY: Negative Renal Disease ENDOCRINE: Negative Diabetes Mellitus Type 1 or Diabetes Mellitus Type 2 Social History SMOKING STATUS: Never smoker SUBSTANCE USE: does not use ED Exam General Limitations: Present no limitations General appearance: Present alert and in no apparent distress Head Head exam: Present atraumatic Eye Eye exam: Present normal appearance, PERRL and EOMI ENT ENT exam: Present normal exam, normal oropharynx and mucous membranes moist Neck Neck exam: Present normal inspection, full ROM and trachea midline Chest Chest inspection: Present normal inspection and symmetric chest wall rise Respiratory Respiratory exam: Present normal lung sounds bilaterally Cardiovascular Cardiovascular exam: Present regular rate, normal rhythm and normal heart sounds Abdominal Exam Abdominal exam: Present soft and normal bowel sounds; Absent distention, tenderness, guarding, rebound or rigidity Extremities Exam Extremities exam: Present normal inspection and full ROM Back Exam Back exam: Present normal inspection and full ROM Neurological Exam Neurological exam: Present alert, oriented X3 and CN II-XII intact Psychiatric Psychiatric exam: Present normal affect and normal mood Skin Skin exam: Present warm, dry, intact and normal color Course Quality Measures none Orders Category Date Time Status US OB <= 14 weeks fetus Stat Exams 06/27/25 15:01 Completed ABO/RH Type Stat Lab 06/27/25 15:35 Completed Beta HCG,Quantitative Stat Lab 06/27/25 15:35 Completed CBC Stat Lab 06/27/25 15:35 Completed CMP [Comprehensive Metabolic Panel] Stat Lab 06/27/25 15:35 Completed UA [Urinalysis] Stat Lab 06/27/25 15:01 Ordered Potassium Chloride [K-Dur] Med 06/27/25 17:16 Discontinued 40 meq PO X1 ONE Vital Signs Vital signs: Vital Signs Temperature 98.5 F 06/27/25 14:50 Pulse Rate 87 06/27/25 14:50 Respiratory Rate 18 06/27/25 14:50 Blood Pressure 156/88 H 06/27/25 14:50 Pulse Oximetry (%) 99 06/27/25 14:50 Oxygen Delivery Method Room Air 06/27/25 14:50 OB/Uterine Contractions MDM Narrative MDM Narrative:: 39-year-old female with no known medical history presents to the emergency room with a chief complaint of needing retirement clearance due to being and not knowing how far along she is. Patient is hemodynamically stable and in no apparent distress. Patient is brought in for retirement clearance. The retirement sent her to the emergency room due to a positive test. They sent her to confirm viability and heart tones. An ultrasound was completed but at this time no intrauterine gestation was visualized and there is no heart tones. The patient's hCG levels were 3810. Patient denies any vaginal bleeding or any pelvic pain. Patient was educated that she will need repeat ultrasound and blood work as she may be early on in her . Patient is unable to tell me her last menstrual period. Patient was discharged and cleared to go to retirement Patient was discharged and educated to follow-up with primary care provider in the next 24 to 48 hours and return to the emergency room for any evidence of worsening signs or symptoms Patient data External records reviewed:: [facility] previous records Clinical information provided by:: patient Social determinants that could affect healthcare access:: none Patient has the following chronic illnesses:: No chronic How is presenting disease/condition affected by chronic disease/condition?: no chronic disease Evaluation data The following diagnostics were reviewed and interpreted by me:: lab results and radiology exam(s) Lab and/or radiology exams considered but not ordered:: Labs radiology exams considered and ordered Interpretation Summary: Ultrasound OB-Findings: Uterus 10.0 cm endometrial stripe 2.1 cm No uterine mass or intrauterine gestation Right ovary obscured by bowel gas Left ovary 4.2 cm arterial flow 2.6 x 1.4 x 2.1 cm cyst IMPRESSION: Left ovarian simple cyst 2.6 x 1.4 x 2.1 cm Medications / Prescriptions Medications or Prescriptions considered but not ordered:: No medication given Medication administrations:: Medication Administration History Discontinued Medications Potassium Chloride (Potassium Chloride 20 Meq Tabcr) 40 meq PO X1 ONE Stop: 06/27/25 17:17 Last Admin: 06/27/25 17:20 Dose: Not Given Documented By: Non-Admin Reason: Patient Refused Comments: No medication given Consultations Consultation(s) initiated? (list below): No Diagnosis OB Contractions Differential Diagnosis: other (Pelvic cramping) Most likely diagnosis given after review of the tests above:: Pelvic cramping Admission Indicated Admission indicated?: not indicated Explain why admission is indicated or not indicated:: N/A Admission Request Was there a request for admission?: No Disposition Plan Disposition Plan: Discharge Discharge Attestation Discharge Attestation: The patient and all family members were given an opportunity to ask questions and understood the discharge instructions. Discharge instructions specifically effects, indications for sooner follow up or return to the emergency department, and the expected course of current diagnosis. Patient condition: Stable Discharge Plan Plan Patient Disposition: HOME (Self Care) Discharge Disposition comment: Stable Prescriptions/Referrals Prescriptions/Med Rec: No Action ondansetron 4 mg tablet,disintegrating 4 mg PO Q8H PRN (Reason: nausea and vomiting) Qty: 10 0RF acetaminophen 325 mg capsule 650 mg PO Q8HR PRN (Reason: pain) Qty: 30 0RF Referrals: No Primary/Family,Physician [Primary Care Provider] - In 1 week Problem List Clinical Impression: , Pelvic cramping Patient/Caregiver Discharge Instructions Education Materials: First Trimester Additional Instructions: Please follow-up with your [facility] in the next 24 to 48 hours Please avoid using methamphetamine Your ultrasound at this time cannot see any heart tones or any intrauterine gestation. This may be because you are early in your . Our radiologist recommends repeat ultrasound and blood work in 1 week For any evidence of worsening signs or symptoms return to the emergency room immediately Print Language: Armenian Stand Alone Forms: Kathy Award Info., Work/School Release, Patient Portal Info Letter
[2025-06-27 16:29] LABS: Basophils # (Auto) 0.0 Thou/mm3 (0.0-0.2); Basophils % (Auto) 0 % (0-2.5); Eosinophils # (Auto) 0.1 Thou/mm3 (0.0-0.5); Eosinophils % (Auto) 1 % (0-10); Hematocrit 33.4 % (36.0-46.0); Hemoglobin 10.4 g/dL (12.0-16.0); Immature Granulocytes Auto 0.02 Thou/mm3 (0.00-0.00); Lymphocytes # (Auto) 1.8 Thou/mm3 (1.0-4.8); Lymphocytes % (Auto) 30 % (10-50); Mean Corpuscular HGB Conc 31.1 g/dl (31.0-37.0); Mean Corpuscular Hemoglobin 24.7 pg (25.0-35.0); Mean Corpuscular Volume 79 fL (80-100); Monocytes # (Auto) 0.4 Thou/mm3 (0.0-0.8); Monocytes % (Auto) 6 % (0-12); Neutrophils # (Auto) 3.7 Thou/mm3 (1.8-7.7); Neutrophils % (Auto) 62 % (37-80); Nucleated Red Blood Cell # 0.00 Thou/mm3 (0.00-0.00); Nucleated Red Blood Cell % 0 /100 WBC (0); Platelet Count 336 Thou/mm3 (140-440); RDW Standard Deviation 52.1 fL (36.4-46.3); Red Blood Count 4.21 Miln/mm3 (4.00-5.20); White Blood Count 5.9 Thou/mm3 (3.6-11.0)
[2025-06-27 17:08] LABS: Alanine Aminotransferase 51 U/L (10-49); Albumin, Serum 4.4 gm/dL (3.5-5.0); Albumin/Globulin Ratio 1.4 (1.2-2.2); Alkaline Phosphatase 84 U/L (46-116); Anion Gap 9 (7-16); Aspartate Amino Transferase 44 U/L (0-34); BUN/Creatinine Ratio 8 Ratio (12-20); Beta HCG,Quantitative 3810 mIU/mL (<5.0); Bilirubin,Total 0.3 mg/dL (0.3-1.2); Blood Urea Nitrogen 5 mg/dL (9-23); Calcium 8.8 mg/dL (8.3-10.6); Calcium (Corrected) 8.8 mg/dL (8.5-10.1); Carbon Dioxide 25.0 mMol/L (20.0-31.0); Chloride 106 mMol/L (98-107); Creatinine (Component) 0.6 mg/dL (0.6-1.3); Globulin 3.1 gm/dL (2.3-3.5); Glucose 93 mg/dL (74-106); Osmolality,Calculated 276 (275-295); Potassium 3.3 mMol/L (3.4-5.1); Sodium 140 mMol/L (136-145); Total Protein 7.5 gm/dL (5.7-8.2); eGFR > 60 See Note
== END 2025-06-27 17:40 | disposition home or self-care (01) ==
PROVIDERS: Nurse Practitioner Family; Emergency Provider Emergency Medicine
DX: Z02.89 Encounter for other administrative examinations (principal); O26.891 Other specified pregnancy related conditions, first trimester; R10.20 Pelvic and perineal pain unspecified side; M54.9 Dorsalgia, unspecified; O34.81 Maternal care for other abnormalities of pelvic organs, first trimester; N83.292 Other ovarian cyst, left side
CPT/HCPCS: 36415; 76801; 80053; 81001; 84702; 85025; 86900; 86901; 99283